=== PATIENT | male | born 1975 | race African-American/Black ===

== ENCOUNTER → 2019-03-11 | Outpatient (CLI) | payer OTHER | LOC: CAT 08:16 | DX: Z13.6 Encounter for screening for cardiovascular disorders (principal); E78.00 Pure hypercholesterolemia, unspecified; I25.10 Atherosclerotic heart disease of native coronary artery without angina pectoris ==

== ENCOUNTER → 2021-04-29 | Outpatient (CLI) | payer OTHER | LOC: CAT 07:41 | PROVIDERS: ATTEND Family Medicine | DX: Z13.6 Encounter for screening for cardiovascular disorders (principal); I25.10 Atherosclerotic heart disease of native coronary artery without angina pectoris; E78.00 Pure hypercholesterolemia, unspecified ==